=== PATIENT | male | born 1995 | race Caucasian/White ===

== ENCOUNTER 2021-04-04 12:11 | Day surgery (SDC) | payer OTHER ==
[~2021-04-04] VITALS: Ht 182.9 cm; Wt 68.0 kg
[2021-04-04] MEDS ORDERED: diphenhydrAMINE 50 MG/ML VIAL ONE (12:53)
[2021-04-04] MEDS ORDERED: MIDAZOLAM 5 MG/5 ML VIAL ONE (12:54)
[2021-04-04] MEDS ORDERED: fentaNYL citrate 0.05 MG/ML VIAL ONE (12:54)
[2021-04-04] MEDS ORDERED: MIDAZOLAM 2 MG/2 ML VIAL IVP ONE (14:20)
[2021-04-04] MEDS ORDERED: fentaNYL citrate 0.05 MG/ML VIAL IVP ONE (14:20)
[2021-04-04] MEDS ORDERED: diphenhydrAMINE 50 MG/ML VIAL IVP ONE (14:20)
== END 2021-04-04 15:00 | disposition home or self-care (01) ==
LOC: MDS 12:11 → MMU 12:12 → MDS 15:00
PROVIDERS: ATTEND Internal Medicine Gastroenterology
DX: R10.9 Unspecified abdominal pain (principal); R11.2 Nausea with vomiting, unspecified; K31.9 Disease of stomach and duodenum, unspecified; K21.9 Gastro-esophageal reflux disease without esophagitis; Z79.899 Other long term (current) drug therapy
CPT/HCPCS: 43239; 88305; 88312; 88313; 88342; J1200; J2250; J3010